=== PATIENT | male | born 2005 | race Caucasian/White ===

== ENCOUNTER 2023-02-04 10:05 | Inpatient (IN) | payer MEDICAID ==
[~2023-02-04] VITALS: Ht 182.9 cm; Wt 81.8 kg
[2023-02-04] MEDS ORDERED: acetaminophen 325mg tablet PO STA (10:47)
[2023-02-04] MEDS ORDERED: ketorolac trometh. 30mg/ml inj. IV ONE (10:50)
[2023-02-04] MEDS ORDERED: normal saline 1000ML IV soln IV ONE (10:50)
[2023-02-04 11:34] LABS: BASOPHILS % (AUTO) 0.1 % (0-1); EOSINOPHILS # (AUTO) 0.5 X10'3 (0-0.9); EOSINOPHILS % (AUTO) 3.2 % (0-6); HEMATOCRIT 45.8 % (42.0-52.0); HEMOGLOBIN 14.9 g/dl (14.0-17.9); LYMPHOCYTES # (AUTO) 0.7 X10'3 (1.1-4.8); MEAN CORPUSCULAR HEMOGLOBIN 28.3 PG (27.0-31.0); MEAN CORPUSCULAR HGB CONC 32.6 g/dL (33.0-36.5); MEAN CORPUSCULAR VOLUME 86.9 FL (78-98); MEAN PLATELET VOLUME 7.5 FL (7.4-10.4); MONOCYTES # (AUTO) 1.6 X10'3 (0-0.9); MONOCYTES % (AUTO) 9.5 % (2-12); NEUTROPHILS # (AUTO) 13.6 X10'3 (1.8-7.7); NEUTROPHILS % (AUTO) 83.2 % (42-75); PLATELET COUNT 180 X10'3 (140-440); RED BLOOD COUNT 5.27 X10'6 (4.70-6.10); RED CELL DISTRIBUTION WIDTH 13.6 % (11.5-14.5); WHITE BLOOD COUNT 16.4 X10'3 (4.5-11.0)
[2023-02-04] MEDS ORDERED: CefTRIAXone 2gm/D5W 50ml BAG 50 ML IV ONE (11:45)
[2023-02-04] MEDS ORDERED: azithromycin/NS 500mg/250ml 250 ML IV ONE (11:45)
[2023-02-04 11:55] LABS: ALANINE AMINOTRANSFERASE 15 U/L (12-78); ALBUMIN 3.8 G/DL (3.4-5.0); ALBUMIN/GLOBULIN RATIO 1.2 (1.1-1.5); ALKALINE PHOSPHATASE 87 IU/L (20-180); ANION GAP 8 (8-16); ASPARTATE AMINO TRANSFERASE 15 U/L (10-37); BILIRUBIN,TOTAL 2.1 MG/DL (0.1-1.0); BLOOD UREA NITROGEN 12 MG/DL (7-18); BUN/CREATININE RATIO 11.5 (5.4-32.0); CALCIUM 8.8 MG/DL (8.5-10.1); CHLORIDE 104 MMOL/L (99-107); CREATININE 1.04 MG/DL (0.60-1.10); GLUCOSE 128 MG/DL (70-104); POTASSIUM 3.9 MMOL/L (3.5-5.1); SODIUM 138 MMOL/L (135-145); TOTAL CARBON DIOXIDE 26.5 MMOL/L (24-32); TOTAL PROTEIN 6.9 G/DL (6.4-8.2); eGFR > 90 ML/MIN
[2023-02-04] MEDS ORDERED: ondansetron/PF 4mg/2ml inj IV ONE (12:05)
[2023-02-04] MEDS ORDERED: dexamethasone sod phosphate 10mg/ml inj IV STA (12:16)
[2023-02-04] MEDS ORDERED: iohexol 350MG/ML 100ml bottle IV ONE (14:18)
[2023-02-04] MEDS ORDERED: ipratropium/albuterol 3ml nebule NEB ONE (15:15)
[2023-02-04] MEDS ORDERED: potassium Cl 40MEQ/1/2NS 520ml 520 ML IV PRN (15:30)
[2023-02-04] MEDS ORDERED: ondansetron/PF 4mg/2ml inj IV PRN (15:30)
[2023-02-04] MEDS ORDERED: potassium Cl 20 mEq SR tablet PO PRN ×2 (15:30)
[2023-02-04] MEDS ORDERED: magnesium Cl slow-release 64mg tablet PO PRN (15:30)
[2023-02-04] MEDS ORDERED: magnesium 4gm in 100ml NS 100 ML IV PRN (15:30)
[2023-02-04] MEDS ORDERED: NO HOME MEDS (15:42)
[2023-02-04] MEDS: normal saline 1000ml 1,000 ML IV SCH ×2 (15:56→23:17)
[2023-02-04] MEDS: K and/or MAG REPLACEMENT MC SCH (20:00)
[2023-02-04 22:30] VITALS: BP 140/71
--- NOTE | 2023-02-04 22:45 | NUR ---
Patient arrived on the floor at approximately 2220 via wheelchair from the ER. Pt alert and orientatedx4 able to transfer self from wheelchair to hospital bed without incident. Pt educted on staff, poc, bed use, call light use, tv use and diet. All patient concerns and questions answered at this time. Pt provided hospital gown and scrub bottoms to put on. MRSA swab collected at this time. Pt given privacy to change. Will continue to monitor.
[2023-02-05 06:00] VITALS: BP 132/58
--- NOTE | 2023-02-05 06:29 | NUR ---
Patient in room [facility]TH[facility] 4014. I have received report from deya martinez and had the opportunity to ask questions and assume patient care.
[2023-02-05 06:30] VITALS: BP 132/58
[2023-02-05 07:02] LABS: BASOPHILS % (AUTO) 0 % (0-1); EOSINOPHILS # (AUTO) 0.8 X10'3 (0-0.9); EOSINOPHILS % (AUTO) 4.1 % (0-6); HEMATOCRIT 41.1 % (42.0-52.0); HEMOGLOBIN 13.6 g/dl (14.0-17.9); LYMPHOCYTES # (AUTO) 0.8 X10'3 (1.1-4.8); LYMPHOCYTES % (AUTO) 4.1 % (21-51); MEAN CORPUSCULAR HEMOGLOBIN 28.5 PG (27.0-31.0); MEAN CORPUSCULAR HGB CONC 33.1 g/dL (33.0-36.5); MEAN CORPUSCULAR VOLUME 86.2 FL (78-98); MEAN PLATELET VOLUME 7.6 FL (7.4-10.4); MONOCYTES # (AUTO) 1.5 X10'3 (0-0.9); MONOCYTES % (AUTO) 7.6 % (2-12); NEUTROPHILS # (AUTO) 16.6 X10'3 (1.8-7.7); NEUTROPHILS % (AUTO) 84.2 % (42-75); PLATELET COUNT 214 X10'3 (140-440); RED BLOOD COUNT 4.77 X10'6 (4.70-6.10); RED CELL DISTRIBUTION WIDTH 13.2 % (11.5-14.5); WHITE BLOOD COUNT 19.7 X10'3 (4.5-11.0)
[2023-02-05 07:37] LABS: ALBUMIN 3.3 G/DL (3.4-5.0); ANION GAP 8 (8-16); BLOOD UREA NITROGEN 14 MG/DL (7-18); BUN/CREATININE RATIO 16.9 (5.4-32.0); CALCIUM 8.7 MG/DL (8.5-10.1); CHLORIDE 106 MMOL/L (99-107); CREATININE 0.83 MG/DL (0.60-1.10); GLUCOSE 114 MG/DL (70-104); MAGNESIUM 2.1 MG/DL (1.5-2.4); SODIUM 139 MMOL/L (135-145); TOTAL CARBON DIOXIDE 25.2 MMOL/L (24-32); eGFR > 90 ML/MIN
[2023-02-05] MEDS: K and/or MAG REPLACEMENT MC SCH ×2 (08:00→19:37)
[2023-02-05] MEDS: CefTRIAXone/D5W-Rocephin 1gm 50 ML IV SCH (08:08)
--- NOTE | 2023-02-05 09:40 | NUR ---
Problems reprioritized. Patient report given, questions answered & plan of care reviewed with tony sousa and bhavya martinez.
--- NOTE | 2023-02-05 09:45 | NUR ---
Pt care assumed from rosa ALVARADO, agreeable to all assessments made.
[2023-02-05] MEDS ORDERED: FLU VACC QS2022-23(6MOS UP)/PF 60 MCG/0.5 ML SYRINGE IMVAC ONE (10:00)
[2023-02-05] MEDS: azithromycin/NS 500mg/250ml 250 ML IV SCH (10:08)
[2023-02-05] MEDS: normal saline 1000ml 1,000 ML IV SCH ×2 (10:08→20:02)
[2023-02-05 18:00] VITALS: BP 132/43
--- NOTE | 2023-02-05 18:21 | NUR ---
Problems reprioritized. Patient report given, questions answered & plan of care reviewed with Chitra ALVARADO.
[2023-02-05 22:00] VITALS: BP 113/47
[2023-02-05] MEDS: guaiFENesin/DM 10ml UD oral syrup PO PRN (22:02)
[2023-02-05] MEDS: acetaminophen 325mg tablet PO PRN (22:46)
[2023-02-06 06:14] LABS: BASOPHILS % (AUTO) 0.1 % (0-1); EOSINOPHILS # (AUTO) 0.7 X10'3 (0-0.9); EOSINOPHILS % (AUTO) 6.4 % (0-6); HEMOGLOBIN 13.4 g/dl (14.0-17.9); LYMPHOCYTES # (AUTO) 1.6 X10'3 (1.1-4.8); LYMPHOCYTES % (AUTO) 13.8 % (21-51); MEAN CORPUSCULAR HEMOGLOBIN 28.7 PG (27.0-31.0); MEAN CORPUSCULAR HGB CONC 33.5 g/dL (33.0-36.5); MEAN CORPUSCULAR VOLUME 85.7 FL (78-98); MEAN PLATELET VOLUME 7.4 FL (7.4-10.4); MONOCYTES # (AUTO) 1.1 X10'3 (0-0.9); MONOCYTES % (AUTO) 9.6 % (2-12); NEUTROPHILS % (AUTO) 70.1 % (42-75); PLATELET COUNT 209 X10'3 (140-440); RED BLOOD COUNT 4.67 X10'6 (4.70-6.10); RED CELL DISTRIBUTION WIDTH 13.4 % (11.5-14.5); WHITE BLOOD COUNT 11.4 X10'3 (4.5-11.0)
[2023-02-06 06:39] LABS: ALBUMIN 3.2 G/DL (3.4-5.0); ANION GAP 4 (8-16); BLOOD UREA NITROGEN 10 MG/DL (7-18); BUN/CREATININE RATIO 10.1 (5.4-32.0); CALCIUM 8.3 MG/DL (8.5-10.1); CHLORIDE 110 MMOL/L (99-107); CREATININE 0.99 MG/DL (0.60-1.10); GLUCOSE 103 MG/DL (70-104); MAGNESIUM 1.9 MG/DL (1.5-2.4); POTASSIUM 4.1 MMOL/L (3.5-5.1); SODIUM 141 MMOL/L (135-145); TOTAL CARBON DIOXIDE 27.3 MMOL/L (24-32); eGFR > 90 ML/MIN
[2023-02-06 07:00] VITALS: BP 126/64
[2023-02-06] MEDS: CefTRIAXone/D5W-Rocephin 1gm 50 ML IV SCH (07:49)
[2023-02-06] MEDS: K and/or MAG REPLACEMENT MC SCH ×2 (08:00→19:28)
[2023-02-06] MEDS: normal saline 1000ml 1,000 ML IV SCH ×2 (08:17→23:57)
[2023-02-06] MEDS: azithromycin/NS 500mg/250ml 250 ML IV SCH (08:47)
[2023-02-06] MEDS: acetaminophen 325mg tablet PO PRN ×2 (08:53→22:45)
--- NOTE | 2023-02-06 10:14 | NUR ---
MD assessed pt with LN, pt is tachycardic, febrile and generally unwell in appearance. MD gave order to continue IV ABX, NS change to 50ml/hr, and obtain COVID test if not previously completed. Repeat chest xray on 02/07. Orders updated. Acetaminophen given for temp 100.9 @0853.
[2023-02-06 11:00] VITALS: BP 115/57
[2023-02-06 15:00] VITALS: BP 112/70
--- NOTE | 2023-02-06 17:06 | NUR ---
Pt removed NC multiple times during this shift and refused incentive spirometer multiple times. LN educated pt re: importance of O2 levels and the brain, also the importance of performing the incentive spirometer every hour to help expand his lungs so he could recover from PNA. Pt acknowledged understanding and was more compliant with self care later in the shift after sleeping most of the day.
[2023-02-06 18:31] VITALS: BP 128/77
[2023-02-06] MEDS: guaiFENesin/DM 10ml UD oral syrup PO PRN (22:45)
[2023-02-06 22:50] VITALS: BP 144/69
[2023-02-07] MEDS: Melatonin 3mg tablet PO SCH ×2 (00:24→22:50)
[2023-02-07 06:00] VITALS: BP 138/71
[2023-02-07 06:15] LABS: BASOPHILS % (AUTO) 0.1 % (0-1); EOSINOPHILS # (AUTO) 0.8 X10'3 (0-0.9); EOSINOPHILS % (AUTO) 7.4 % (0-6); HEMOGLOBIN 13.2 g/dl (14.0-17.9); LYMPHOCYTES # (AUTO) 2.1 X10'3 (1.1-4.8); LYMPHOCYTES % (AUTO) 19.5 % (21-51); MEAN CORPUSCULAR HEMOGLOBIN 28.5 PG (27.0-31.0); MEAN CORPUSCULAR HGB CONC 33.1 g/dL (33.0-36.5); MEAN CORPUSCULAR VOLUME 85.9 FL (78-98); MEAN PLATELET VOLUME 7.3 FL (7.4-10.4); MONOCYTES # (AUTO) 1.2 X10'3 (0-0.9); MONOCYTES % (AUTO) 11.1 % (2-12); NEUTROPHILS # (AUTO) 6.7 X10'3 (1.8-7.7); NEUTROPHILS % (AUTO) 61.9 % (42-75); PLATELET COUNT 208 X10'3 (140-440); RED BLOOD COUNT 4.65 X10'6 (4.70-6.10); WHITE BLOOD COUNT 10.9 X10'3 (4.5-11.0)
[2023-02-07 06:25] LABS: ANION GAP 8 (8-16); BLOOD UREA NITROGEN 9 MG/DL (7-18); BUN/CREATININE RATIO 9.4 (5.4-32.0); CALCIUM 8.6 MG/DL (8.5-10.1); CHLORIDE 107 MMOL/L (99-107); CREATININE 0.96 MG/DL (0.60-1.10); GLUCOSE 90 MG/DL (70-104); MAGNESIUM 2.1 MG/DL (1.5-2.4); POTASSIUM 4.2 MMOL/L (3.5-5.1); SODIUM 140 MMOL/L (135-145); TOTAL CARBON DIOXIDE 25.5 MMOL/L (24-32); eGFR > 90 ML/MIN
[2023-02-07] MEDS: CefTRIAXone/D5W-Rocephin 1gm 50 ML IV SCH (07:26)
[2023-02-07] MEDS: K and/or MAG REPLACEMENT MC SCH ×2 (08:00→20:00)
[2023-02-07] MEDS: azithromycin/NS 500mg/250ml 250 ML IV SCH (08:10)
[2023-02-07 10:00] VITALS: BP 122/61
--- NOTE | 2023-02-07 11:19 | NUR ---
O2 Sat at rest on room air:__92_% If below 89%: Recovery O2 Sat at rest on ___LPM:___%:___% via (mask/nasal cannula, etc..) No further documentation is necessary. If O2 Sat did not drop below 89% on room air,ambulate patient on room air. O2 Sat while ambulating on room air:__90_% Recovery O2 Sat while ambulating on __0_LPM:__94_% No further documentation is necessary. If patient does not drop below 89% while ambulating, he/she does not qualify for home O2.
--- NOTE | 2023-02-07 12:40 | NUR ---
Pt dangling up in bed. O2 sats 88% on RA intially but to 90% with deep breathing. Encouraged use of IS. Pt demonstrated understanding. Dr. Degroot paged regarding change in status. Pt has no complaints other than an occasional cough.
--- NOTE | 2023-02-07 13:45 | NUR ---
Educated pt on spO2% slow breathing techniques. Pt family at bedside. Pt verbalizes understanding of using the IS to help with recovery of his lungs and slow deep breathing.
[2023-02-07] MEDS ORDERED: CefTRIAXone/D5W-Rocephin 1gm 50 ML IV ONE (14:45)
[2023-02-07 18:00] VITALS: BP 114/73
[2023-02-07] MEDS: normal saline 1000ml 1,000 ML IV SCH (20:40)
[2023-02-07 21:19] VITALS: BP 129/73
--- NOTE | 2023-02-07 22:03 | NUR ---
cont pulse ox in place to alarm less than 90%
[2023-02-07] MEDS: guaiFENesin/DM 10ml UD oral syrup PO PRN (22:50)
[2023-02-08] MEDS ORDERED: methylPREDNISolone sod succ/PF 40mg inj. IV ONE (00:25)
[2023-02-08 02:00] VITALS: BP 130/73
--- NOTE | 2023-02-08 02:00 | NUR ---
pt sats dropped on RA - placed on 2L oxygen to keep sats over 90%. staying 94% while sleeping now.
[2023-02-08 06:00] VITALS: BP 108/66
[2023-02-08 06:04] LABS: BASOPHILS % (AUTO) 0.1 % (0-1); EOSINOPHILS # (AUTO) 0.6 X10'3 (0-0.9); HEMATOCRIT 45.4 % (42.0-52.0); HEMOGLOBIN 14.8 g/dl (14.0-17.9); LYMPHOCYTES # (AUTO) 1.2 X10'3 (1.1-4.8); LYMPHOCYTES % (AUTO) 9.4 % (21-51); MEAN CORPUSCULAR HEMOGLOBIN 28.1 PG (27.0-31.0); MEAN CORPUSCULAR HGB CONC 32.6 g/dL (33.0-36.5); MEAN CORPUSCULAR VOLUME 86.2 FL (78-98); MEAN PLATELET VOLUME 7.2 FL (7.4-10.4); MONOCYTES # (AUTO) 0.3 X10'3 (0-0.9); MONOCYTES % (AUTO) 2.3 % (2-12); NEUTROPHILS # (AUTO) 10.4 X10'3 (1.8-7.7); NEUTROPHILS % (AUTO) 83.2 % (42-75); PLATELET COUNT 250 X10'3 (140-440); RED BLOOD COUNT 5.27 X10'6 (4.70-6.10); RED CELL DISTRIBUTION WIDTH 13.4 % (11.5-14.5); WHITE BLOOD COUNT 12.5 X10'3 (4.5-11.0)
--- NOTE | 2023-02-08 06:18 | NUR ---
reported to days. noted Dr. Ya will consult today. pt on oxygen this am to keep sats over 92%.
[2023-02-08 06:24] LABS: ALBUMIN 3.5 G/DL (3.4-5.0); ANION GAP 6 (8-16); BLOOD UREA NITROGEN 13 MG/DL (7-18); BUN/CREATININE RATIO 13.7 (5.4-32.0); CALCIUM 9.5 MG/DL (8.5-10.1); CHLORIDE 105 MMOL/L (99-107); CREATININE 0.95 MG/DL (0.60-1.10); GLUCOSE 151 MG/DL (70-104); MAGNESIUM 2.4 MG/DL (1.5-2.4); POTASSIUM 5.2 MMOL/L (3.5-5.1); SODIUM 140 MMOL/L (135-145); TOTAL CARBON DIOXIDE 29.1 MMOL/L (24-32); eGFR > 90 ML/MIN
[2023-02-08] MEDS: methylPREDNISolone sod succ/PF 40mg inj. IV SCH ×2 (07:23→19:33)
[2023-02-08] MEDS: CefTRIAXone/D5W-Rocephin 1gm 50 ML IV SCH (07:24)
[2023-02-08] MEDS: K and/or MAG REPLACEMENT MC SCH (08:00)
[2023-02-08] MEDS: azithromycin/NS 500mg/250ml 250 ML IV SCH (08:01)
[2023-02-08 11:16] VITALS: BP 119/69
--- NOTE | 2023-02-08 13:03 | NUR ---
PATIENTS SPO2 95% RA SITTING. PT AMBULATED THE NURSES UNIT, THE LOWEST THE PATIENTS SPO2 WAS 93%.
[2023-02-08 13:29] LABS: LACTATE DEHYDROGENASE 261 U/L (85-227)
[2023-02-08 14:12] LABS: HIV ANTIBODY 1&2 RAPID NON-REACTIVE (Neg)
[2023-02-08] MEDS: normal saline 1000ml 1,000 ML IV SCH ×2 (16:40→19:36)
--- NOTE | 2023-02-08 17:33 | NUR ---
ID spoke with pt today, pt states today is the best hes felt. pt spo2 >92% on RA majority of AM shift today. Will continue to monitor pt.
[2023-02-08 18:00] VITALS: BP 106/51
--- NOTE | 2023-02-08 18:30 | NUR ---
Patient in room [facility]TH[facility] 4014. I have received report from Nohemi and had the opportunity to ask questions and assume patient care.
[2023-02-08] MEDS: Melatonin 3mg tablet PO SCH (21:59)
[2023-02-08 22:00] VITALS: BP 130/74
--- NOTE | 2023-02-09 00:54 | NUR ---
Pt's oxygen level down to 87%RA while he is sleeping, positioned his finger under the blankets to see if the pulse oximetry is accurate and if it is still low will apply oxygen.
[2023-02-09 06:00] VITALS: BP 100/50
--- NOTE | 2023-02-09 06:20 | NUR ---
Patient in room [facility]TH[facility] 4014. I have received report from Gloria ALVARADO and had the opportunity to ask questions and assume patient care.
--- NOTE | 2023-02-09 06:27 | NUR ---
Problems reprioritized. Patient report given, questions answered & plan of care reviewed with
[2023-02-09 06:55] LABS: BASOPHILS % (AUTO) 0.2 % (0-1); EOSINOPHILS # (AUTO) 0.5 X10'3 (0-0.9); EOSINOPHILS % (AUTO) 2.2 % (0-6); HEMATOCRIT 43.2 % (42.0-52.0); LYMPHOCYTES # (AUTO) 2.2 X10'3 (1.1-4.8); LYMPHOCYTES % (AUTO) 9.4 % (21-51); MEAN CORPUSCULAR HGB CONC 32.4 g/dL (33.0-36.5); MEAN CORPUSCULAR VOLUME 86.4 FL (78-98); MEAN PLATELET VOLUME 7.2 FL (7.4-10.4); MONOCYTES # (AUTO) 1.3 X10'3 (0-0.9); MONOCYTES % (AUTO) 5.7 % (2-12); NEUTROPHILS % (AUTO) 82.5 % (42-75); PLATELET COUNT 298 X10'3 (140-440); RED CELL DISTRIBUTION WIDTH 13.3 % (11.5-14.5); WHITE BLOOD COUNT 23.1 X10'3 (4.5-11.0)
[2023-02-09 07:19] LABS: ALBUMIN 3.3 G/DL (3.4-5.0); ANION GAP 10 (8-16); BLOOD UREA NITROGEN 20 MG/DL (7-18); BUN/CREATININE RATIO 27.8 (5.4-32.0); CALCIUM 9.2 MG/DL (8.5-10.1); CHLORIDE 107 MMOL/L (99-107); CREATININE 0.72 MG/DL (0.60-1.10); GLUCOSE 133 MG/DL (70-104); POTASSIUM 4.6 MMOL/L (3.5-5.1); SODIUM 141 MMOL/L (135-145); TOTAL CARBON DIOXIDE 24.5 MMOL/L (24-32); eGFR > 90 ML/MIN
[2023-02-09] MEDS: methylPREDNISolone sod succ/PF 40mg inj. IV SCH (08:25)
[2023-02-09] MEDS: CefTRIAXone/D5W-Rocephin 1gm 50 ML IV SCH (08:25)
[2023-02-09 10:00] VITALS: BP 109/66
[2023-02-09] MEDS ORDERED: methylPREDNISolone sod succ/PF 40mg inj. IV SCH (10:20)
[2023-02-09 10:52] LABS: C-REACTIVE PROTEIN 3.32 MG/DL (0.0-0.5)
--- NOTE | 2023-02-09 10:56 | NUR ---
Initial: Pt admit for PNA, sepsis, and acute hypoxemic respiratory failure. Currently on a regular diet and eating well, documented with 100% PO intake of all meals with the exception of average 34% PO intake x 4 meals 02/06 to breakfast 02/07, bringing total average PO intake to 78% since admit. [facility] 02/08. No nutrition intervention implemented at this time. Will continue to follow and make recommendations as appropriate pending further trends in PO intake. Recommendations: 1) Continue regular diet 2) Monitor need for additional protein 3) Bowel care PRN 4) Scaled weight this admit; subsequent weekly scaled weights Addendum: 02/09/23 at [address] Amended: Links added.
[2023-02-09] MEDS ORDERED: PRED10TA23 PO (10:57)
[2023-02-09] MEDS ORDERED: LEVO-65 PO (12:19)
--- NOTE | 2023-02-09 14:00 | NUR ---
Pt dc to home via private vehicle accompanied by friend, escorted by staff via wheelchair to vehicle. PIV dc with no complications or s/sx of infiltrations/infection noted. Pt verbally agreeable to all dc instructions and education provided to him. All prescriptions called into [facility]. Pt aware. VSS and pt is alert and oriented at time of discharge.
--- NOTE | 2023-02-09 14:00 | NUR ---
THREAD DRAWER documentation: I have reviewed and agree with all interventions, assessments performed and documented by Shira Arriola LVN .
[2023-02-10] MEDS ORDERED: methylPREDNISolone sod succ/PF 40mg inj. IV SCH (08:00)
== END 2023-02-09 14:05 | disposition home or self-care (01) | DRG 720 ==
LOC: ER 10:07 → ED HOLD 15:32 → ORTHO 4S 22:20
PROVIDERS: ADMIT Internal Medicine; ATTEND Internal Medicine
PROC: B32T1ZZ Computerized Tomography (CT Scan) of Left Pulmonary Artery using Low Osmolar Contrast (ICD-10-PCS; 2023-02-04)
PROC: B3201ZZ Computerized Tomography (CT Scan) of Thoracic Aorta using Low Osmolar Contrast (ICD-10-PCS; 2023-02-04)
PROC: B32S1ZZ Computerized Tomography (CT Scan) of Right Pulmonary Artery using Low Osmolar Contrast (ICD-10-PCS; 2023-02-04)
PROC: 3E02340 Introduction of Influenza Vaccine into Muscle, Percutaneous Approach (ICD-10-PCS; principal; 2023-02-05)
DX: A41.9 Sepsis, unspecified organism (principal); J96.01 Acute respiratory failure with hypoxia; J69.0 Pneumonitis due to inhalation of food and vomit; E87.5 Hyperkalemia; Z20.822 Contact with and (suspected) exposure to COVID-19; F17.210 Nicotine dependence, cigarettes, uncomplicated; Z23 Encounter for immunization; Z28.310 Unvaccinated for COVID-19
CPT/HCPCS: 36415; 71045; 71275; 80048; 80053; 83605; 83615; 83735; 84145; 85025; 85651; 86140; 86703; 87040; 87081; 87502; 87503; 87635; 90686; 93005; 99285; C9803; G0378; J0456; J0696; J1100; J1885; J2405; J2920; J3490; J7030; Q9967

== ENCOUNTER 2023-04-12 19:09 | Emergency (ER) | payer MEDICAID ==
[~2023-04-12] VITALS: Ht 188 cm; Wt 109.1 kg
[~2023-04-12 19:09] MED LIST: LEVO-65 PO
[2023-04-12 19:27] VITALS: BP 142/78
== END 2023-04-12 22:17 | disposition home or self-care (01) ==
LOC: ER 19:10
DX: R05.9 Cough, unspecified (principal); R53.83 Other fatigue; Z79.899 Other long term (current) drug therapy
CPT/HCPCS: 71045; 99283

== ENCOUNTER 2023-05-14 15:25 | Emergency (ER) | payer MEDICAID ==
[~2023-05-14] VITALS: Ht 182.9 cm; Wt 240.0 kg
[2023-05-14 15:48] VITALS: BP 129/76
[2023-05-14 16:53] LABS: MONOTEST NEGATIVE (Neg)
== END 2023-05-14 17:15 | disposition home or self-care (01) ==
LOC: ER 15:26
DX: J06.9 Acute upper respiratory infection, unspecified (principal); Z20.822 Contact with and (suspected) exposure to COVID-19; R05.9 Cough, unspecified; R11.0 Nausea
CPT/HCPCS: 36415; 86308; 87081; 87502; 87503; 87811; 87880; 99283

== ENCOUNTER 2023-05-31 13:10 | Emergency (ER) | payer MEDICAID ==
[~2023-05-31] VITALS: Ht 185.4 cm; Wt 120.0 kg
[2023-05-31 13:29] VITALS: BP 158/72
[2023-05-31] MEDS ORDERED: ketorolac trometh inj. 60 MG/2 ML VIAL IM ONE (15:20)
[2023-05-31] MEDS ORDERED: ketorolac trometh. 30mg/ml inj. IM ONE (15:20)
[2023-05-31] MEDS ORDERED: AZIT250T2 PO (15:21)
[2023-05-31] MEDS ORDERED: FLUT16SP2 BOTHNARES (15:21)
[2023-05-31] MEDS ORDERED: CETI10TA15 PO (15:21)
== END 2023-05-31 15:46 | disposition home or self-care (01) ==
LOC: ER 13:11
DX: J01.90 Acute sinusitis, unspecified (principal); R51.9 Headache, unspecified; Z79.899 Other long term (current) drug therapy
CPT/HCPCS: 96372; 99283; J1885

== ENCOUNTER 2023-06-07 20:36 | Emergency (ER) | payer MEDICAID ==
[~2023-06-07] VITALS: Ht 185.4 cm; Wt 109.1 kg
[~2023-06-07 20:36] MED LIST changes: +CETI10TA15 PO; +FLUT16SP2 BOTHNARES
[2023-06-07 23:14] LABS: MEAN CORPUSCULAR HEMOGLOBIN 28.5 PG (27.0-31.0); MEAN CORPUSCULAR HGB CONC 33.4 g/dL (33.0-36.5); MEAN CORPUSCULAR VOLUME 85.4 FL (78-98); MEAN PLATELET VOLUME 7.5 FL (7.4-10.4); MONOCYTES # (AUTO) 0.6 X10'3 (0-0.9); RED CELL DISTRIBUTION WIDTH 13.5 % (11.5-14.5)
[2023-06-07 23:15] LABS: BASOPHILS % (AUTO) 0.4 % (0-1); EOSINOPHILS # (AUTO) 0.4 X10'3 (0-0.9); EOSINOPHILS % (AUTO) 3.3 % (0-6); HEMATOCRIT 42.2 % (42.0-52.0); HEMOGLOBIN 14.1 g/dl (14.0-17.9); LYMPHOCYTES # (AUTO) 2.2 X10'3 (1.1-4.8); LYMPHOCYTES % (AUTO) 19.5 % (21-51); MONOCYTES % (AUTO) 5.8 % (2-12); NEUTROPHILS # (AUTO) 7.9 X10'3 (1.8-7.7); PLATELET COUNT 207 X10'3 (140-440); RED BLOOD COUNT 4.94 X10'6 (4.70-6.10); WHITE BLOOD COUNT 11.1 X10'3 (4.5-11.0)
[2023-06-07 23:28] LABS: ALANINE AMINOTRANSFERASE 53 U/L (12-78); ALBUMIN 4.5 G/DL (3.4-5.0); ALBUMIN/GLOBULIN RATIO 1.6 (1.1-1.5); ALKALINE PHOSPHATASE 95 IU/L (20-180); ANION GAP 11 (8-16); ASPARTATE AMINO TRANSFERASE 24 U/L (10-37); BILIRUBIN,TOTAL 0.8 MG/DL (0.1-1.0); BLOOD UREA NITROGEN 25 MG/DL (7-18); BUN/CREATININE RATIO 24.8 (10.0-20.0); CALCIUM 9.4 MG/DL (8.5-10.1); CHLORIDE 106 MMOL/L (99-107); CREATININE 1.01 MG/DL (0.60-1.10); GLUCOSE 83 MG/DL (70-104); POTASSIUM 4.1 MMOL/L (3.5-5.1); SODIUM 143 MMOL/L (135-145); TOTAL CARBON DIOXIDE 25.7 MMOL/L (24-32); TOTAL PROTEIN 7.4 G/DL (6.4-8.2); eGFR > 90 ML/MIN
[2023-06-08 00:16] VITALS: BP 124/76
== END 2023-06-08 00:17 | disposition home or self-care (01) ==
LOC: ER 20:36
DX: K62.5 Hemorrhage of anus and rectum (principal); R19.7 Diarrhea, unspecified; F17.200 Nicotine dependence, unspecified, uncomplicated
CPT/HCPCS: 36415; 71045; 80053; 84484; 85025; 93005; 99285; J7030

== ENCOUNTER 2023-08-06 13:04 | Emergency (ER) | payer MEDICAID ==
[~2023-08-06] VITALS: Ht 185.4 cm; Wt 109.1 kg
[~2023-08-06 13:04] MED LIST changes: -FLUT16SP2 BOTHNARES; -LEVO-65 PO
[2023-08-06 13:22] VITALS: BP 129/78; PULSE 88; RESP 18; TEMP 98.7; O2SAT 97
== END 2023-08-06 16:36 | disposition left against medical advice (07) ==
LOC: ER 13:04
DX: R19.7 Diarrhea, unspecified (principal); R51.9 Headache, unspecified; Z53.21 Procedure and treatment not carried out due to patient leaving prior to being seen by health care provider
CPT/HCPCS: 99281

== ENCOUNTER 2025-03-08 15:10 | Emergency (ER) | payer MEDICAID ==
[~2025-03-08] VITALS: Ht 185.4 cm; Wt 88.8 kg
[2025-03-08 15:23] VITALS: BP 144/76; PULSE 90; RESP 18; O2SAT 98
[2025-03-08 16:55] VITALS: TEMP 99.8
== END 2025-03-08 16:56 | disposition home or self-care (01) ==
LOC: ER 15:11
DX: M94.0 Chondrocostal junction syndrome [Tietze] (principal); R06.02 Shortness of breath; F17.210 Nicotine dependence, cigarettes, uncomplicated
CPT/HCPCS: 71046; 99283

== ENCOUNTER 2025-03-11 17:58 | Emergency (ER) | payer MEDICAID ==
[~2025-03-11] VITALS: Ht 182.9 cm; Wt 86.4 kg
[2025-03-11 17:59] VITALS: TEMP 97.6
[2025-03-11 19:30] LABS: ALBUMIN 4.8 G/DL (3.4-5.0); ANION GAP 16 (8-16); BLOOD UREA NITROGEN 15 MG/DL (7-18); BUN/CREATININE RATIO 15.5 (10.0-20.0); CALCIUM 9.5 MG/DL (8.5-10.1); CHLORIDE 104 MMOL/L (99-107); CREATININE 0.97 MG/DL (0.60-1.10); GLUCOSE 96 MG/DL (70-104); POTASSIUM 3.3 MMOL/L (3.5-5.1); SODIUM 140 MMOL/L (135-145); TOTAL CARBON DIOXIDE 20.4 MMOL/L (24-32); eCRCL 132 ML/MIN; eGFR > 90 ML/MIN
[2025-03-11] MEDS: potassium Cl 20 mEq SR tablet PO STA (20:12)
[2025-03-11 21:23] VITALS: BP 135/77; PULSE 83; RESP 16; O2SAT 97
== END 2025-03-11 21:24 | disposition home or self-care (01) ==
LOC: ER 17:59
DX: E87.6 Hypokalemia (principal); Z79.899 Other long term (current) drug therapy
CPT/HCPCS: 36415; 80048; 82948; 84484; 93005; 99283; 99284